=== PATIENT | female | born 1945 | race Caucasian/White ===

== ENCOUNTER 2023-11-19 17:41 | Emergency (ER) | payer MEDICARE ==
[2023-11-19] MEDS ORDERED: ATROPINE SULFATE 1MG SYR ABBOJECT IV ONE (17:42)
[2023-11-19] MEDS ORDERED: DIPRIVAN 200 MG/20 ML IV ONE (17:42)
[2023-11-19] MEDS ORDERED: EPINEPHRINE ABBOJECT 1 MG/10 ML IV ONE (17:42)
[2023-11-19] MEDS ORDERED: SODIUM BICARBONATE 50 MEQ/50 ML ABBOJECT IV ONE (17:42)
[2023-11-19] MEDS ORDERED: Sodium Chloride 0.9% 1000 ML 1,000 ML IV ONE (17:42)
[2023-11-19] MEDS ORDERED: SUBLIMAZE 100 MCG/2 ML IV ONE (18:01)
[2023-11-19] MEDS ORDERED: Zofran 4 MG/2 ML VIAL IV ONE (18:01)
--- NOTE | 2023-11-19 18:01 | ERPHSYRPT ---
- History of Present Illness Source: EMS Exam Limitations: clinical condition Timing/Duration: today Activities at Onset: none Severity of Dyspnea-Max: severe Severity of Dyspnea-Current: severe Possible Cause: unknown cause <VIKKI CUNHA - Last Filed: 11/19/23 19:23> <LYNNE VOGEL - Last Filed: 11/20/23 03:52> - History of Present Illness Time Seen by Provider: 11/19/23 17:41 Physician History: This is a morbidly obese 35-year-old white female patient who has been having respiratory difficulties all day and contacted the suture gauger service just after 5 PM prior to arrival. Patient was talking to the paramedics on their way and. There was no intravenous line established and the patient upon arrival to the emergency department. The patient was bradycardic and agonal breathing. We i mmediately placed the patient on nonrebreather breather and prepared for orotracheal intubation which was performed by the respiratory therapist. We are unable to establish peripheral intravenous access and therefore placed to bilateral lower extremity interosseous lines which flowed and functioned properly. We lost the pulse and the patient became asystolic and we began CPR with the Jah device. We followed the asystole protocol. (VIKKI CUNHA) Travel Risk - International Travel Have you traveled outside of the country in past 3 weeks: No - Emerging Infectious Disease Are you exhibiting symptoms associated with any current EIDs: Yes Symptoms: Shortness of Breath <VIKKI CUNHA - Last Filed: 11/19/23 19:23> - Review of Systems Constitutional: Other (Patient unable to communicate she was unresponsive) Eyes: Other (Patient unresponsive) Respiratory: Dyspnea, Other (Breathing) Cardiac: Other (Patient unresponsive) Abdominal/Gastrointestinal: Other (Patient unresponsive) Genitourinary Symptoms: Other (And unresponsive) Musculoskeletal: Other (Patient unresponsive) Skin: Other (Patient unresponsive) Neurological: Other (Patient unresponsive) Psychological: Other (Patient unresponsive) Endocrine: Other (Patient unresponsive) Hematologic/Lymphatic: Other (Patient unresponsive) Immunological/Allergic: Other (Unresponsive) All Other Systems: Unable due to condition <VIKKI CUNHA - Last Filed: 11/19/23 19:23> - Past Medical History Pertinent Past Medical History: No (Unable to ascertain ) - Past Surgical History Past Surgical History: No (Patient unresponsive. Brenda Do) <VIKKI CUNHA RamónRobby - Last Filed: 11/19/23 19:23> - Physical Exam General Appearance: severe distress, obese, other (Unresponsive myocardial breathing) Eye Exam: other (Pupils bilaterally equal and slightly) Neck Exam: normal inspection Respiratory Exam: respiratory distress (Severe), other (Gentle breathing but clear) Cardiovascular/Chest Exam: bradycardia Abdominal/Gastrointestinal Exam: soft, normal bowel sounds, No tenderness Rectal Exam: not done Extremity Exam: pedal edema (Bilateral below the knee) Neurologic Exam: other (Unresponsive) Skin Exam: mottled Lymphatic Exam: No adenopathy SpO2 Interpretation: hypoxic <VIKKI CUNHA - Last Filed: 11/19/23 19:23> - Nursing Vital Signs Nursing Vital Signs: Initial Vital Signs Pulse Rate 97 H 11/19/23 18:55 Respiratory Rate 18 11/19/23 18:55 Blood Pressure 194/103 11/19/23 18:55 O2 Sat by Pulse Oximetry 88 L 11/19/23 18:55 - Course Nursing assessment & vital signs reviewed: Yes EKG Interpreted by Me: RATE (105), Sinus Tach, Right Bundle Branch Block, Other (Left posterior fascicular block. No obvious acute ischemia.) <VIKKI CUNHA - Last Filed: 11/19/23 19:23> Ordered Tests: Active Orders 24 hr Category Date Time Status CO2 Monitoring STAT Care 11/19/23 18:25 Completed Patient Coordinator STAT Care 11/19/23 18:03 Completed Catheter-[place] STAT Care 11/19/23 18:01 Completed Catheter-[place] STAT Care 11/19/23 18:01 Completed EKG-ER Only STAT Care 11/19/23 18:01 Completed IV Insertion STAT Care 11/19/23 18:01 Completed Pulse Oximetry (ED) STAT Care 11/19/23 18:01 Completed CHEST 1 VIEW (PORTABLE) Stat Exams 11/19/23 18:02 Taken ABG [ARTERIAL BLOOD GASES] Stat Lab 11/19/23 17:50 Completed CBC W DIFF Stat Lab 11/19/23 17:50 Completed CMP Stat Lab 11/19/23 17:55 Completed CULTURE,URINE Stat Lab 11/19/23 20:00 Received D-DIMER QUANTITATIVE Stat Lab 11/19/23 17:55 Completed Lactic Acid Stat Lab 11/19/23 17:50 Completed MAGNESIUM Stat Lab 11/19/23 17:55 Completed NT PRO BNPII Stat Lab 11/19/23 17:55 Completed TROPONIN Q4H Lab 11/19/23 17:55 Completed UA W/RFX UR CULTURE Stat Lab 11/19/23 20:00 Completed Urine Triage Profile Stat Lab 11/19/23 20:00 Results Intubate Patient STAT RT 11/19/23 18:25 Completed Ventilator Management STAT RT 11/19/23 18:25 Completed Medication Summary Discontinued Medications Generic Name Dose Route Start Last Admin Trade Name Freq PRN Reason Stop Dose Admin Fentanyl Citrate 100 mcg 11/19/23 18:01 Fentanyl Citrate 100 Mcg/2 Ml* Vial IV 11/19/23 18:02 STAT ONE Fentanyl Citrate Confirm 11/19/23 18:03 Fentanyl Citrate 100 Mcg/2 Ml* Vial Administered 11/19/23 18:04 Dose 100 mcg .ROUTE .STK-MED ONE Sodium Chloride 1,000 mls @ 50 mls/hr 11/19/23 18:15 Sodium Chloride 0.9% 1000 Ml IV 12/19/23 18:14 .Q20H ZHANG Propofol Confirm 11/19/23 19:42 Propofol 1000 Mg/100 Ml Bottle Administered 11/19/23 19:43 Dose 100 mls @ ud IV .STK-MED ONE Sodium Chloride Confirm 11/19/23 18:14 Sodium Chloride 0.9% 1000 Ml Administered 11/19/23 18:15 Dose 1,000 mls @ ud .ROUTE .STK-MED ONE Midazolam HCl 5 mg 11/19/23 18:04 11/19/23 20:58 Midazolam Hcl 5 Mg/5 Ml Vial IV 11/19/23 18:05 2 mg STAT ONE Administration Midazolam HCl 2 mg 11/19/23 20:46 Midazolam Hcl 2 Mg/2 Ml Vial IV 12/19/23 20:45 1HRPRIOR PRN SEVERE PAIN Midazolam HCl Confirm 11/19/23 20:49 Midazolam Hcl 5 Mg/5 Ml Vial Administered 11/19/23 20:50 Dose 5 mg .ROUTE .STK-MED ONE Morphine Sulfate 4 mg 11/19/23 20:45 11/19/23 21:16 Morphine Sulfate 4 Mg/Ml Injection IV 11/24/23 20:44 4 mg Q2H PRN PRN Administration PAIN Morphine Sulfate Confirm 11/19/23 20:49 Morphine Sulfate 4 Mg/Ml Injection Administered 11/19/23 20:50 Dose 4 mg .ROUTE .STK-MED ONE Morphine Sulfate Confirm 11/19/23 21:05 Morphine Sulfate 4 Mg/Ml Injection Administered 11/19/23 21:06 Dose 4 mg .ROUTE .STK-MED ONE Morphine Sulfate Confirm 11/19/23 21:39 Morphine Sulfate 4 Mg/Ml Injection Administered 11/19/23 21:40 Dose 4 mg .ROUTE .STK-MED ONE Ondansetron HCl 4 mg 11/19/23 18:01 Ondansetron Hcl 4 Mg/2 Ml Vial IV 11/19/23 18:02 STAT ONE Lab/Rad Data: Laboratory Result Diagrams 11/19/23 17:50 11/19/23 17:55 Laboratory Results 11/19/23 11/19/23 11/19/23 Range/Units 20:00 20:00 18:00 WBC (3.98-10.04) x10^3/uL RBC (3.93-5.22) x10^6/uL Hgb (11.2-15.7) g/dL Hct (34.1-44.9) % MCV (79.4-94.8) fL MCH (25.6-32.2) pg MCHC (32.2-35.5) g/dL RDW (11.7-14.4) % Plt Count (182-369) x10^3/uL MPV (9.4-12.3) fL Gran % (34.0-71.1) % Immature Gran % (Auto) (0.001-0.429) % Nucleat RBC Rel Count (0.00-0.2) % Eos # (Auto) (0.04-0.36) x10^3/uL Immature Gran # (Auto) (0.001-0.031) x10^3u/L Absolute Lymphs (auto) (1.18-3.74) x10^3/uL Absolute Monos (auto) (0.24-0.86) x10^3/uL Absolute Nucleated RBC (0.00-0.012) x10^3u/L Lymphocytes % (19.3-51.7) % Monocytes % (4.7-12.5) % Eosinophils % (0.7-5.8) % Basophils % (0.1-1.2) % Absolute Granulocytes (1.56-6.13) x10^3/uL Basophils # (0.01-0.08) x10^3/uL D-Dimer (0.0-0.50) mg/L Puncture Site pCO2 (35-45) mmHg pO2 (75-100) mmHg Base Excess (-2.0-2.0) O2 Saturation (94-100) g/dF ABG pH (7.35-7.45) ABG HCO3 (22-28) ABG O2 Sat (Measured) (95-100) % [place] Test Hemoglobin Carboxyhemoglobin (0.0-6.9) % THgb Methemoglobin (1.4-1.5) % Potassium (3.5-5.1) Temperature C POC O2 Flow Rate % Sodium (135-145) mmol/L Chloride (98-107) mmol/L Carbon Dioxide (22-30) mmol/L Anion Gap (5-15) MEQ/L BUN (7-17) mg/dL Creatinine (0.52-1.04) mg/dL Estimated GFR ML/MIN Glucose (74-106) mg/dL Lactic Acid (0.4-2.0) Calcium (8.4-10.2) mg/dL Magnesium (1.6-2.3) mg/dL Total Bilirubin (0.2-1.3) mg/dL AST (14-36) U/L ALT (0-35) U/L Alkaline Phosphatase (38-126) U/L Troponin I (0.000-0.033) ng/mL NT-Pro-B Natriuret Pep (<300) pg/mL Serum Total Protein (6.3-8.2) g/dL Albumin (3.5-5.0) g/dL Urine Color Yellow (Yellow) Urine Appearance Clear (Clear) Urine pH 6.5 (4.6-8.0) Ur Specific [place] 1.015 (1.005-1.030) Urine Protein >=1000 A (Negative) Urine Glucose (UA) 100 A (Negative) mg/dL Urine Ketones Negative (Negative) Urine Blood Small A (Negative) Urine Nitrite Negative (Negative) Urine Bilirubin Negative (Negative) Urine Urobilinogen 1.0 A (0.2) mg/dL Ur Leukocyte Esterase Negative (Negative) U Hyaline Cast (Auto) 0-2 (0-2) /LPF Urine Microscopic RBC 6-10 A (0-5) /HPF Urine Microscopic WBC 3-5 (0-5) /HPF Ur Epithelial Cells Few (None Seen) /HPF Urine Bacteria Few A (None Seen) /HPF Urine Culture Reflexed ORDERED SEPARATELY (NO) Urine Opiates Level NEGATIVE (NEGATIVE) Ur Methadone NEGATIVE (NEGATIVE) Urine Barbiturates NEGATIVE (NEGATIVE) Ur Phencyclidine (PCP) NEGATIVE (NEGATIVE) Urine Amphetamine NEGATIVE (NEGATIVE) U Benzodiazepine Level Pending Urine Cocaine NEGATIVE (NEGATIVE) Urine Marijuana (THC) NEGATIVE (NEGATIVE) Influenza Type A Ag NEGATIVE (NEGATIVE) Influenza Type B Ag NEGATIVE (NEGATIVE) RSV (PCR) NEGATIVE (NEGATIVE) SARS-CoV-2 (PCR) NEGATIVE (NEGATIVE) Slides for Path Review 11/19/23 11/19/23 11/19/23 Range/Units 17:55 17:55 17:55 WBC (3.98-10.04) x10^3/uL RBC (3.93-5.22) x10^6/uL Hgb (11.2-15.7) g/dL Hct (34.1-44.9) % MCV (79.4-94.8) fL MCH (25.6-32.2) pg MCHC (32.2-35.5) g/dL RDW (11.7-14.4) % Plt Count (182-369) x10^3/uL MPV (9.4-12.3) fL Gran % (34.0-71.1) % Immature Gran % (Auto) (0.001-0.429) % Nucleat RBC Rel Count (0.00-0.2) % Eos # (Auto) (0.04-0.36) x10^3/uL Immature Gran # (Auto) (0.001-0.031) x10^3u/L Absolute Lymphs (auto) (1.18-3.74) x10^3/uL Absolute Monos (auto) (0.24-0.86) x10^3/uL Absolute Nucleated RBC (0.00-0.012) x10^3u/L Lymphocytes % (19.3-51.7) % Monocytes % (4.7-12.5) % Eosinophils % (0.7-5.8) % Basophils % (0.1-1.2) % Absolute Granulocytes (1.56-6.13) x10^3/uL Basophils # (0.01-0.08) x10^3/uL D-Dimer 8.70 H* (0.0-0.50) mg/L Puncture Site pCO2 (35-45) mmHg pO2 (75-100) mmHg Base Excess (-2.0-2.0) O2 Saturation (94-100) g/dF ABG pH (7.35-7.45) ABG HCO3 (22-28) ABG O2 Sat (Measured) (95-100) % [place] Test Hemoglobin Carboxyhemoglobin (0.0-6.9) % THgb Methemoglobin (1.4-1.5) % Potassium 4.3 (3.5-5.1) Temperature C POC O2 Flow Rate % Sodium 143 (135-145) mmol/L Chloride 102 (98-107) mmol/L Carbon Dioxide 25 (22-30) mmol/L Anion Gap 20.5 H (5-15) MEQ/L BUN 12 (7-17) mg/dL Creatinine 1.13 H (0.52-1.04) mg/dL Estimated GFR 65.5 ML/MIN Glucose 314 H (74-106) mg/dL Lactic Acid (0.4-2.0) Calcium 8.8 (8.4-10.2) mg/dL Magnesium 2.5 H (1.6-2.3) mg/dL Total Bilirubin 0.30 (0.2-1.3) mg/dL AST 66 H (14-36) U/L ALT 65 H (0-35) U/L Alkaline Phosphatase 79 (38-126) U/L Troponin I 0.052 H* (0.000-0.033) ng/mL NT-Pro-B Natriuret Pep 2300 (<300) pg/mL Serum Total Protein 6.5 (6.3-8.2) g/dL Albumin 3.6 (3.5-5.0) g/dL Urine Color (Yellow) Urine Appearance (Clear) Urine pH (4.6-8.0) Ur Specific [place] (1.005-1.030) Urine Protein (Negative) Urine Glucose (UA) (Negative) mg/dL Urine Ketones (Negative) Urine Blood (Negative) Urine Nitrite (Negative) Urine Bilirubin (Negative) Urine Urobilinogen (0.2) mg/dL Ur Leukocyte Esterase (Negative) U Hyaline Cast (Auto) (0-2) /LPF Urine Microscopic RBC (0-5) /HPF Urine Microscopic WBC (0-5) /HPF Ur Epithelial Cells (None Seen) /HPF Urine Bacteria (None Seen) /HPF Urine Culture Reflexed (NO) Urine Opiates Level (NEGATIVE) Ur Methadone (NEGATIVE) Urine Barbiturates (NEGATIVE) Ur Phencyclidine (PCP) (NEGATIVE) Urine Amphetamine (NEGATIVE) U Benzodiazepine Level Urine Cocaine (NEGATIVE) Urine Marijuana (THC) (NEGATIVE) Influenza Type A Ag (NEGATIVE) Influenza Type B Ag (NEGATIVE) RSV (PCR) (NEGATIVE) SARS-CoV-2 (PCR) (NEGATIVE) Slides for Path Review 11/19/23 11/19/23 Range/Units 17:50 17:50 WBC 17.9 H (3.98-10.04) x10^3/uL RBC 4.02 (3.93-5.22) x10^6/uL Hgb 12.2 (11.2-15.7) g/dL Hct 42.3 (34.1-44.9) % MCV 105.2 H (79.4-94.8) fL MCH 30.3 (25.6-32.2) pg MCHC 28.8 L (32.2-35.5) g/dL RDW 14.4 (11.7-14.4) % Plt Count 308 (182-369) x10^3/uL MPV 9.9 (9.4-12.3) fL Gran % 54.7 (34.0-71.1) % Immature Gran % (Auto) 4.3 H (0.001-0.429) % Nucleat RBC Rel Count 0.2 (0.00-0.2) % Eos # (Auto) 0.22 (0.04-0.36) x10^3/uL Immature Gran # (Auto) 0.76 H (0.001-0.031) x10^3u/L Absolute Lymphs (auto) 5.91 H (1.18-3.74) x10^3/uL Absolute Monos (auto) 1.09 H (0.24-0.86) x10^3/uL Absolute Nucleated RBC 0.04 H (0.00-0.012) x10^3u/L Lymphocytes % 33.1 (19.3-51.7) % Monocytes % 6.1 (4.7-12.5) % Eosinophils % 1.2 (0.7-5.8) % Basophils % 0.6 (0.1-1.2) % Absolute Granulocytes 9.77 H (1.56-6.13) x10^3/uL Basophils # 0.11 H (0.01-0.08) x10^3/uL D-Dimer (0.0-0.50) mg/L Puncture Site RIGHT RADIAL pCO2 125 H* (35-45) mmHg pO2 81 (75-100) mmHg Base Excess -11.0 L (-2.0-2.0) O2 Saturation 89.4 L (94-100) g/dF ABG pH 6.90 L* (7.35-7.45) ABG HCO3 24.5 (22-28) ABG O2 Sat (Measured) 90.9 L (95-100) % [place] Test YES Hemoglobin 13.1 Carboxyhemoglobin 1.3 (0.0-6.9) % THgb Methemoglobin 0.3 L (1.4-1.5) % Potassium 4.8 (3.5-5.1) Temperature 37.0 C POC O2 Flow Rate 100 % Sodium (135-145) mmol/L Chloride (98-107) mmol/L Carbon Dioxide (22-30) mmol/L Anion Gap (5-15) MEQ/L BUN (7-17) mg/dL Creatinine (0.52-1.04) mg/dL Estimated GFR ML/MIN Glucose (74-106) mg/dL Lactic Acid 11.7 H (0.4-2.0) Calcium (8.4-10.2) mg/dL Magnesium (1.6-2.3) mg/dL Total Bilirubin (0.2-1.3) mg/dL AST (14-36) U/L ALT (0-35) U/L Alkaline Phosphatase (38-126) U/L Troponin I (0.000-0.033) ng/mL NT-Pro-B Natriuret Pep (<300) pg/mL Serum Total Protein (6.3-8.2) g/dL Albumin (3.5-5.0) g/dL Urine Color (Yellow) Urine Appearance (Clear) Urine pH (4.6-8.0) Ur Specific [place] (1.005-1.030) Urine Protein (Negative) Urine Glucose (UA) (Negative) mg/dL Urine Ketones (Negative) Urine Blood (Negative) Urine Nitrite (Negative) Urine Bilirubin (Negative) Urine Urobilinogen (0.2) mg/dL Ur Leukocyte Esterase (Negative) U Hyaline Cast (Auto) (0-2) /LPF Urine Microscopic RBC (0-5) /HPF Urine Microscopic WBC (0-5) /HPF Ur Epithelial Cells (None Seen) /HPF Urine Bacteria (None Seen) /HPF Urine Culture Reflexed (NO) Urine Opiates Level (NEGATIVE) Ur Methadone (NEGATIVE) Urine Barbiturates (NEGATIVE) Ur Phencyclidine (PCP) (NEGATIVE) Urine Amphetamine (NEGATIVE) U Benzodiazepine Level Urine Cocaine (NEGATIVE) Urine Marijuana (THC) (NEGATIVE) Influenza Type A Ag (NEGATIVE) Influenza Type B Ag (NEGATIVE) RSV (PCR) (NEGATIVE) SARS-CoV-2 (PCR) (NEGATIVE) Slides for Path Review YES - Progress Progress: improved Air Movement: fair Blood Culture(s) Obtained: No Antibiotics given: No Counseled pt/family regarding: lab results, rad results <VIKKI CUNHA - Last Filed: 11/19/23 19:23> <LYNNE VOGEL - Last Filed: 11/20/23 03:52> - Progress Progress Note: 11/19/23 18:26 Medical decision making in the assignment of high complexity to this patient's medical issue today is based on review of the patient's past medical history, review of patient's medication list, review patient drug allergy list, history of present illness and physical findings on examination. The workup in this patient includes CPR with Jah device and intravenous medication. Oral tracheal intubation by the respiratory therapist. Postintubation chest x-ray difficult to assess will send to the radiologist for interpretation. We will place a [place] catheter, obtain viral swabs, CBC, CMP, troponin level, D-dimer level, BNP, twelve-lead EKG, magnesium level, ABG. Differential diagnosis includes but not limited to cardiac arrest secondary to respiratory arrest, myocardial infarction, CHF exacerbation, COPD, sepsis 11/19/23 18:29 I spoke to the patient's son, Mr. Feliz at 6:20 PM. We were unaware that the patient was a DO NOT RESUSCITATE patient and we performed CPR including orotr acheal intubation and it was successful in returning spontaneous pulse. The repeat twelve-lead EKG was interpreted by me at 1811 on 11/19/2023. The rate is 90 bpm. It is normal sinus rhythm and it is right bundle branch block and left posterior fascicular block. Not significantly changed from the prior twelve-lead EKG. 11/19/23 18:31 The chest x-ray was interpreted by the radiologist and I reviewed the impression. The impression is the tip of the endotracheal tube is 2 cm above the jered. 11/19/23 19:[address] Vogel at shift change. He will make final disposition. (VIKKI CUNHA) 11/19/23 2030 Case was discussed with [facility]-they want the patient extubated. The patient's family was informed of the discussion with [facility]-they will sign the con sent for extubation. Condolences were offered to family. sHe was placed on comfort measures and was extubated per protocol. Family will be at her bedside till she passes (LYNNE VOGEL) Medical Desision Making - Independent Historian Additional History obtained from: Family (I spoke to the son Mr. Feliz at approximately 6:20 PM. He states that the patient is DNR.) <VIKKI CUNHA - Last Filed: 11/19/23 19:23> - Departure Departure Disposition: Transfer Critical Care Time: Yes Critical Care Time(excluding separately billable procedures): Critical 30-74 mins (40) <VIKKI CUNHA - Last Filed: 11/19/23 19:23> - Departure Departure Disposition: <LYNNE VOGEL - Last Filed: 11/20/23 03:52> - Departure Clinical Impression: Respiratory arrest before cardiac arrest Condition: Critical Referrals: YAMEL RIOS [Primary Care Provider] - Follow up/PCP as directed
[2023-11-19] MEDS ORDERED: SUBLIMAZE 100 MCG/2 ML ONE (18:03)
[2023-11-19] MEDS ORDERED: VERSED 5 MG/5 ML IV ONE (18:04)
[2023-11-19 18:07] LABS: Absolute Neutrophil Ct (ANC) 9.77 x10^3/uL (1.56-6.13); BASOPHIL % 0.6 % (0.1-1.2); Basophil (Absolute #) 0.11 x10^3/uL (0.01-0.08); Eosinophil % 1.2 % (0.7-5.8); Eosinophil (Absolute #) 0.22 x10^3/uL (0.04-0.36); Hematocrit 42.3 % (34.1-44.9); Hemoglobin 12.2 g/dL (11.2-15.7); IMMATURE GRAN # 0.76 x10^3u/L (0.001-0.031); IMMATURE GRAN % 4.3 % (0.001-0.429); Lymphocyte (Absolute #) 5.91 x10^3/uL (1.18-3.74); Lymphocytes % 33.1 % (19.3-51.7); Mean Cell Volume 105.2 fL (79.4-94.8); Mean Corpuscular Hemoglobin 30.3 pg (25.6-32.2); Mean Corpuscular Hgb Concent. 28.8 g/dL (32.2-35.5); Mean Platelet Volume 9.9 fL (9.4-12.3); Monocyte (Absolute #) 1.09 x10^3/uL (0.24-0.86); Monocytes % 6.1 % (4.7-12.5); NUCLEATED RBC # 0.04 x10^3u/L (0.00-0.012); NUCLEATED RBC % 0.2 % (0.00-0.2); Neutrophil % 54.7 % (34.0-71.1); Platelet Count 308 x10^3/uL (182-369); Red Blood Count 4.02 x10^6/uL (3.93-5.22); Red Cell Distribution Width 14.4 % (11.7-14.4); White Blood Count 17.9 x10^3/uL (3.98-10.04)
[2023-11-19 18:14] LABS: ABG HEMOGLOBIN 13.1; ABG POTASSIUM 4.8 (3.5-5.1); ARTERIAL BLD GAS O2 SATURATION 90.9 % (95-100); ARTERIAL BLOOD GAS FIO2 100 %; ARTERIAL BLOOD GAS PO2 81 mmHg (75-100); CARBOXYHEMOGLOBIN 1.3 % THgb (0.0-6.9); HCO3- 24.5 (22-28); HGB O2 SAT 89.4 g/dF (94-100); Lactic Acid 11.7 (0.4-2.0); Methhemoglobin 0.3 % (1.4-1.5)
[2023-11-19] MEDS ORDERED: Sodium Chloride 0.9% 1000 ML 1,000 ML ONE (18:14)
[2023-11-19 18:15] LABS: ABG SITE RIGHT RADIAL; ALLEN TEST OK? YES; ARTERIAL BLOOD GAS PCO2 125 mmHg (35-45)
[2023-11-19] MEDS ORDERED: Sodium Chloride 0.9% 1000 ML 1,000 ML IV SCH (18:15)
[2023-11-19 18:20] LABS: ALBUMIN 3.6 g/dL (3.5-5.0); ANION GAP 20.5 MEQ/L (5-15); BILIRUBIN,TOTAL 0.3 mg/dL (0.2-1.3); Calcium 8.8 mg/dL (8.4-10.2); Creatinine 1 1.13 mg/dL (0.52-1.04); EST GLOMERULAR FILTRATION RATE 65.5 ML/MIN; MAGNESIUM 2.5 mg/dL (1.6-2.3); Potassium 4.3 mmol/L (3.5-5.1); Total Protein 6.5 g/dL (6.3-8.2)
[2023-11-19 18:53] LABS: TROPONIN 0.052 ng/mL (0.000-0.033)
[2023-11-19 19:01] LABS: Slide Review 1 YES
[2023-11-19] MEDS ORDERED: Propofol 1000 mg/100 ml Bottle 100 ML IV ONE (19:42)
[2023-11-19 20:30] LABS: Amphetamine,Urine NEGATIVE (NEGATIVE); Barbiturate,Urine NEGATIVE (NEGATIVE); Cocaine,Urine NEGATIVE (NEGATIVE); Methadone,Urine NEGATIVE (NEGATIVE); Opiate,Urine NEGATIVE (NEGATIVE); PCP,Urine NEGATIVE (NEGATIVE); THC,Urine NEGATIVE (NEGATIVE)
[2023-11-19 20:37] LABS: Appearance Clear (Clear); Bilirubin Negative (Negative); Blood Small (Negative); Epithelial Cells Few /HPF (None Seen); Glucose, Urine 100 mg/dL (Negative); Ketones Negative (Negative); Leukocyte Esterase Negative (Negative); Nitrite Negative (Negative); Ph 6.5 (4.6-8.0); Protein,Urine Dip >=1000 (Negative); Specific Gravity 1.015 (1.005-1.030)
[2023-11-19 20:39] LABS: ADD URINE CULTURE? ORDERED SEPARATELY (NO); Bacteria Few /HPF (None Seen); Hyaline Casts 0-2 /LPF (0-2)
[2023-11-19] MEDS ORDERED: Versed 2 MG/2 ML Injection IV PRN (20:46)
[2023-11-19] MEDS ORDERED: MORPHINE SULFATE 4 MG INJ ONE ×3 (20:49→21:39)
[2023-11-19] MEDS ORDERED: VERSED 5 MG/5 ML ONE (20:49)
[2023-11-19] MEDS: MORPHINE SULFATE 4 MG INJ IV PRN (20:52)
[2023-11-19] MEDS: VERSED 5 MG/5 ML IV ONE (20:58)
[2023-11-19 21:10] VITALS: BP 168/141; O2SAT 59
[2023-11-19 21:22] VITALS: PULSE 82; RESP 22; TEMP 99.7
[2023-11-19 21:53] LABS: INFLUENZA A NEGATIVE (NEGATIVE); INFLUENZA B NEGATIVE (NEGATIVE); RESPIRATORY SYNCTIAL VIRUS NEGATIVE (NEGATIVE); SARS-CoV-2 Xpert Express NEGATIVE (NEGATIVE)
--- NOTE | 2023-11-20 08:32 | XRAY ---
Indication: Endotracheal tube placement. Comparison: None Portable chest limited as left lung base not completely included. Endotracheal tube tip approximately 2 cm above jered. Elsewhere cardiomegaly and diffuse pulmonary edema without consolidation/large effusion. Bony thorax intact with osteopenia and mild degenerative changes.
== END 2023-11-19 21:55 | disposition expired ==
LOC: ED 17:41 → EDBD 17:41 → ED 21:55
DX: I46.9 Cardiac arrest, cause unspecified (principal)
CPT/HCPCS: 0241U; 31500; 36000; 36415; 36600; 71045; 80053; 80307; 81001; 82375; 82803; 83605; 83735; 83880; 84484; 85025; 85379; 87086; 94002; 96374; 96375; 96376; 99284; 99291; 92950; J0171; J0461; J2250; J2270; J2704; J3010